=== PATIENT | born 1995 ===

== ENCOUNTER 2019-11-18 08:45 | Outpatient (REF) | payer SELFPAY ==
[2019-11-18 09:33] LABS: Complement C3 148 mg/dL (90-180)
[2019-11-18 09:34] LABS: C Reactive Protein 7.5 mg/L (0.0-4.9); Immunoglobulin IGA 108 mg/dL (70-400); Immunoglobulin IGG 972 mg/dL (700-1600); Immunoglobulin IGM 36 mg/dL (40-230)
[2019-11-18 09:34] LABS: Alanine Aminotransferase 66 U/L (0-33); Albumin Level 5.2 g/dL (3.5-5.2); Alkaline Phosphatase 245 IU/L (35-105); Aspartate Amino Transferase 85 U/L (0-32); Bilirubin Neonatal Total 1.9 mg/dL (0.15-1.0); Chol HDL Ratio 3.92 mg/dL (0.0-4.40); Cholesterol 153 mg/dL (0-200); Ferritin 29 ng/mL (15-150); Gamma Glutamyl Transferase 40 U/L (36-); Globulin 1.1 g/dL (1.3-4.6); HDL Cholesterol 39 mg/dL (60-100); Iron 83 ug/dL (37-145); LDL Cholesterol Calculated 100 mg/dL (50-129); LDL HDL Ratio 2.56 RATIO (0.00-3.22); Lipase 40 U/L (13-60); Magnesium 2.6 mg/dL (1.7-2.3); Phosphorus 4.9 mg/dL (2.5-4.5); Total Bilirubin 1.9 mg/dL (0.15-1.2); Total Protein 6.3 g/dL (6.6-8.7); Triglycerides 71 mg/dL (0-150); Uric Acid 6.8 mg/dL (2.4-5.7)
[2019-11-18 09:42] LABS: Hepatitis A Antibody IgM. Non-Reactive (Nonreactive); Hepatitis B Core IgM Non-Reactive (Nonreactive); Hepatitis B Surface Antigen. Non-Reactive (Nonreactive); Hepatitis C Virus Antibody Non-Reactive (Nonreactive)
[2019-11-18 09:42] LABS: Carbamazepine Tegretol 13.3 ug/mL (4.0-12.0); Gentamicin Trough 1.7 ug/mL (0.0-8.0); Phenytoin Dilantin 20.2 ug/mL (10-20); Salicylate 23.4 mg/dL (3-10); Vancomycin Random 36.7 ug/mL (20.0-40.0)
[2019-11-18 09:44] LABS: Calcium Urine Random 11.6 mg/dL; Creatinine Urine, Random 185 mg/dL (28-217)
[2019-11-18 09:45] LABS: Hepatitis A Antibody IgM. Non-Reactive (Nonreactive); Hepatitis B Surface AB. 13.2 (0-8.5); Hepatitis B Surface Antigen. Reactive (Nonreactive); Hepatitis C Virus Antibody Reactive (Nonreactive)
[2019-11-18 09:48] LABS: Testosterone Total 428.9 ng/dL (8.4-48.1)
[2019-11-18 09:49] LABS: Parathyroid Hormone 934.7 pg/mL (15-65)
[2019-11-18 09:49] LABS: Microalbumin Random Urine 7 ug/dL (0-20); Potassium, Radom Urine 92 mmol/L; Urine Creatinine 181 mg/dL (28-217)
[2019-11-18 09:50] LABS: Cortisol Random 9.81 mcg/dL (2.47-19.5); Tumor Marker Alpha Fetoprotein 41.5 ng/mL (0-8.3)
[2019-11-18 09:51] LABS: CA 125 43.1 U/mL (0-35); Cancer Antigen 19 9 51.28 (0-35)
[2019-11-18 09:58] LABS: 25 Hydroxy Vitamin D 17 ng/mL (30-100)
[2019-11-18 10:01] LABS: Magnesium Level (OB Only) 4.4 mg/dL (5.0-7.5)
[2019-11-18 10:13] LABS: Acetaminophen 128.4 ug/mL (10-30); Digoxin 3.3 ng/mL (0.6-1.2); Tobramycin Trough 6.2 ug/mL (0.0-2.0)
[2019-11-18 10:21] LABS: Calcium 0.8 mg/dL (8.8-10.2)
[2019-11-18 11:06] LABS: Estradiol. 435.4 pg/mL
[2019-11-18 13:04] LABS: Transferrin 299 mg/dL (200-360)
[2019-11-18 13:11] LABS: Homocysteine 34.25 (0-15)
[2019-11-18 13:13] LABS: Free T4 Free Thyroxine 1.03 ng/dL (0.82-1.77); Thyroid Stimulating Hormone 0.19 uIU/mL (0.27-4.20)
[2019-11-18 13:24] LABS: Creatine Phosphokinase 7 U/L (26-192)
[2019-11-18 14:25] LABS: CA 15-3 9.4 U/mL (0-25); Carcinoembryonic Antigen 1.9 ng/mL (0.0-4.7); Progesterone 1.33; Vitamin B12 188 pg/mL (232-1245)
[2019-11-18 15:35] LABS: LDL Cholesterol 107 (0-100)
[2019-11-18 15:43] LABS: Urine Random Chloride 155 mmol/L; Urine Random Sodium 189 mmol/L
[2019-11-18 15:55] LABS: Microalbum Creatinine Ratio Ur 39 mg/dL (0-20)
[2019-11-18 15:59] LABS: Glucose CSF 38 mg/dL (40-70); Total Protein CSF 68 mg/dL (15-45)
[2019-12-02 15:33] LABS: Anion Gap 4.5 (5-19); Blood Urea Nitrogen 50 mg/dL (6-20); Carbon Dioxide 40 mmol/L (22-29); Chloride 100 mmol/L (98-107); Glomerular Filtration Rate 31.9 mL/min (90-130); Glucose 200 mg/dL (74-109); Potassium 4.5 mmol/L (3.5-5.1); Sodium 140 mmol/L (136-145)
[2019-12-07 09:03] LABS: Cosyntropin 1 Hour 13.09 mg/dL
[2019-12-07 09:04] LABS: Cosyntropin 30 Minute 16.31 mg/dL
[2019-12-07 09:31] LABS: Cosyntropin Baseline 62.07 mg/dL
[2019-12-08 13:25] LABS: Rubella IgG 112.4 1 (0.0-9.0)
[2019-12-08 14:06] LABS: Rapid Plasma Reagin Syphilis Nonreactive (Nonreactive)
[2019-12-09 13:01] LABS: Rubella IgG 11.5 IU/mL (0.0-9.0)
[2019-12-09 13:06] LABS: Rapid Plasma Reagin Syphilis Nonreactive (Nonreactive); Rubella IgG < 0.2 IU/mL (0.0-9.0)
[2019-12-09 13:07] LABS: Rapid Plasma Reagin Syphilis Reactive (Nonreactive)
[2019-12-13 10:40] LABS: Ammonia 59 umol/L (11-51)
[2020-01-19 22:27] LABS: Amphetamines Screen Urine Negative (Negative); Barbiturates Screen Urine Negative (Negative); Benzodiazepines Screen Urine Positive (Negative); Cocaine Screen Urine INVALID ng/mL (Negative); Opiate Screen Urine INVALID ng/mL (Negative); PCP Screen Urine INVALID ng/mL (Negative); THC Screen Urine INVALID ng/mL (Negative)
== END 2019-11-18 08:46 | disposition home or self-care (01) ==
LOC: LAB 08:45
DX: Z76.89 Persons encountering health services in other specified circumstances (principal)
CPT/HCPCS: 80061; 80074; 80076; 80156; 80162; 80170; 80178; 80184; 80185; 80198; 80200; 80202; 80307; 82044; 82105; 82247; 82306; 82310; 82340; 82378; 82436; 82533; 82550; 82553; 82570; 82575; 82607; 82670; 82728; 82784; 82945; 82977; 83010; 83090; 83540; 83690; 83735; 83970; 84100; 84133; 84134; 84144; 84146; 84153; 84156; 84157; 84300; 84403; 84439; 84443; 84466; 84550; 86140; 86141; 86160; 86300; 86301; 86304; 86431; 86705; 86706; 86709; 86803; 87340